=== PATIENT | female | born 1980 | race Caucasian/White ===

== ENCOUNTER 2017-01-19 11:41 | Emergency (ER) | payer OTHER, MEDICAID ==
[~2017-01-19] VITALS: Ht 165.1 cm; Wt 72.6 kg
[~2017-01-19 11:41] MED LIST: NORCOTAB PO; OXYC1TAB23 PO
[2017-01-19] MEDS ORDERED: KETOROLAC 30 MG/ML VIAL (J1885) IV ONE (12:00)
[2017-01-19] MEDS ORDERED: NS 1,000 ML IV ONE (12:00)
[2017-01-19] MEDS ORDERED: ONDANSETRON 4MG/2ML VIAL (J2405) IV ONE (12:15)
[2017-01-19 12:34] LABS: BASO % 0.5 % (0.0-1.0); EOS # 0.4 K/mm3 (0.0-0.50); EOS % 4.3 % (0.0-3.0); LARGE UNSTAINED CELL # 0.1 K/mm3 (0.0-0.4); LYMPH # 1.8 K/mm3 (1.5-4.5); MEAN CORPUSCULAR HEMOGLOBIN 30.7 pg (27.0-33.0); MEAN CORPUSCULAR VOLUME 90.4 fl (80.0-96.0); MONO # 0.3 K/mm3 (0.0-0.8); MONO % 3.5 % (0.0-5.0); NEUTROPHILS # 5.7 K/mm3 (1.8-7.7); NEUTROPHILS % 69.6 % (36.0-66.0); PLATELET COUNT, AUTOMATED 261 k/mm3 (150-450); RED CELL DISTRIBUTION WIDTH 12.5 % (11.5-14.5); WHITE BLOOD COUNT 8.2 K/mm3 (4.0-10.0)
--- NOTE | 2017-01-19 13:39 | REP ---
PELVIC ULTRASOUND: Real-time sonographic evaluation of the pelvis performed utilizing transabdominal and endovaginal technique. The bladder measures 3.1 x 2.1 x 6.5 cm. 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 Endometrium in the right side measures 5 mm in AP thickness and on the right side 9 mm. There is no endometrial fluid collection. Ovaries appear normal in size and echotexture, right ovary measuring 2.3 x 1.7 x 2.3 cm and left ovary 2.7 x 1.2 x 2.4 cm. There is no evidence of adnexal mass. There is no evidence of ovarian torsion with blood flow seen in each ovary with duplex Doppler evaluation. There is mild free fluid. IMPRESSION: Mild free fluid. No evidence of adnexal mass. No evidence of torsion. Signed by Palomo Perez MD 01/19/2017 04:57 P
[2017-01-19] MEDS ORDERED: ZOFR4TAB3 PO (14:29)
[2017-01-19] MEDS ORDERED: NAPR500T PO (14:30)
[2017-01-19 14:37] VITALS: BP 122/76
== END 2017-01-19 14:38 | disposition home or self-care (01) ==
LOC: M ED 13:33
DX: N92.0 Excessive and frequent menstruation with regular cycle (principal); R51 Headache; Z88.5 Allergy status to narcotic agent
CPT/HCPCS: 51701; 76830; 76856; 81001; 81025; 84443; 85025; 93976; 96374; 96375; 99284; J1885; J2405

== ENCOUNTER → 2017-02-15 | Outpatient (CLI) | payer OTHER, MEDICAID ==
[~2017-02-15] MED LIST changes: +NAPR500T PO; +ZOFR4TAB3 PO
--- NOTE | 2017-02-16 05:42 | REP ---
Clinical: Pain. Technique: AP, lateral, bilateral oblique views left first digit. Findings: The osseous structures and joint spaces are intact and normal. There is no evidence for acute fracture or dislocation. Surrounding soft tissues are unremarkable. No subcutaneous emphysema or radiodense foreign body. Impression: Normal examination. No acute fracture or dislocation. Signed by Matthew Hinojosa MD 02/16/2017 05:34 A
== END ==
LOC: M CLY 14:42
PROVIDERS: ATTEND Family Medicine
DX: M79.645 Pain in left finger(s) (principal)

== ENCOUNTER → 2017-12-13 | Outpatient (REF) | payer OTHER, MEDICAID ==
[2017-12-13 17:21] LABS: ALBUMIN 3.9 GM/DL (3.2-5.2); ALBUMIN/GLOBULIN RATIO 1.18 (1.00-1.93); ALKALINE PHOSPHATASE 44 U/L (45-117); ALT/SGPT 13 U/L (12-78); AMYLASE 69 U/L (25-115); ANION GAP 7 MEQ/L (8-16); AST/SGOT 17 U/L (7-37); BILIRUBIN,TOTAL 0.4 MG/DL (0.2-1.0); BLOOD UREA NITROGEN 12 MG/DL (7-18); CALCIUM LEVEL 8.8 MG/DL (8.5-10.1); CARBON DIOXIDE LEVEL 27 MEQ/L (21-32); CHLORIDE LEVEL 109 MEQ/L (98-107); CREATININE FOR GFR 0.82 MG/DL (0.55-1.30); GLOMERULAR FILTRATION RATE > 60.0 (>60); GLUCOSE, FASTING 69 MG/DL (70-100); LIPASE 163 U/L (73-393); MAGNESIUM LEVEL 2.2 MG/DL (1.8-2.4); POTASSIUM SERUM 3.6 MEQ/L (3.5-5.1); SODIUM LEVEL 143 MEQ/L (136-145); TOTAL PROTEIN 7.2 GM/DL (6.4-8.2)
[2017-12-13 17:25] LABS: BASO # 0.1 10^3/uL (0.0-0.2); BASO % 1.5 % (0.0-1.0); EOS # 0.3 10^3/uL (0.0-0.50); HEMATOCRIT 38.6 % (36.0-47.0); HEMOGLOBIN 12.7 g/dl (12.0-15.5); IMMATURE GRANULOCYTE % 0.2 % (0-3.0); LYMPH # 2.3 10^3/uL (1.5-4.5); LYMPH % 42.4 % (24.0-44.0); MEAN CORPUSCULAR HEMOGLOBIN 29.5 pg (27.0-33.0); MEAN CORPUSCULAR HGB CONC 32.9 g/dl (32.0-36.5); MEAN CORPUSCULAR VOLUME 89.8 fl (80.0-96.0); MONO # 0.4 10^3/uL (0.0-0.8); MONO % 7.3 % (0.0-5.0); NEUTROPHILS # 2.3 10^3/uL (1.8-7.7); NEUTROPHILS % 43.6 % (36.0-66.0); PLATELET COUNT, AUTOMATED 318 10^3/uL (150-450); RED CELL DISTRIBUTION WIDTH 13.2 % (11.5-14.5); WHITE BLOOD COUNT 5.4 10^3/uL (4.0-10.0)
== END ==
LOC: M SFHCCLAY 10:01
DX: R10.30 Lower abdominal pain, unspecified (principal)

== ENCOUNTER → 2018-03-19 | Outpatient (REF) | payer OTHER, MEDICAID ==
[2018-03-19 12:52] LABS: AMORPHOUS SEDIMENT SMALL (NEGATIVE); APPEARANCE, URINE HAZY (CLEAR); BACTERIA, URINE AUTO 1+ (NEGATIVE); BILIRUBIN, URINE AUTO NEGATIVE (NEGATIVE); BLOOD, URINE BLOOD NEGATIVE (NEGATIVE); COLOR, URINE YELLOW (YELLOW); GLUCOSE, URINE (UA) AUTO NEGATIVE (NEGATIVE); KETONE, URINE AUTO NEGATIVE (NEGATIVE); LEUKOCYTE ESTERASE, URINE AUTO NEGATIVE (NEGATIVE); MUCUS, URINE SMALL (NEGATIVE); NITRITE, URINE AUTO NEGATIVE (NEGATIVE); PROTEIN, URINE AUTO NEGATIVE (NEGATIVE); RBC, URINE AUTO 1 /HPF (0-3); SPECIFIC GRAVITY URINE AUTO 1.008 (1.002-1.035); SQUAMOUS EPITHELIAL CELL UR AU 3 /HPF (0-6); UROBILINOGEN, URINE AUTO 0.2 mg/dL (0.0-2.0); WBC, URINE AUTO 1 /HPF (0-3)
[2018-03-19 14:54] LABS: CONTROL LINE UCG INT CTR LINE PRESENT; URINE PREG TEST NEGATIVE (NEGATIVE)
== END ==
LOC: M LAB REF 12:36
DX: N39.0 Urinary tract infection, site not specified (principal)
CPT/HCPCS: 84703

== ENCOUNTER → 2018-04-28 | Outpatient (CLI) | payer OTHER, MEDICAID | LOC: M RAD 17:58 | DX: M25.562 Pain in left knee (principal); Z98.890 Other specified postprocedural states; M22.40 Chondromalacia patellae, unspecified knee | CPT/HCPCS: 73721 ==

== ENCOUNTER → 2018-11-24 | Outpatient (REF) | payer OTHER, MEDICAID ==
[~2018-11-24] MED LIST changes: +NAPR-50 PO; -NAPR500T PO; +ZOFR4TAB14 PO; -ZOFR4TAB3 PO
[2018-11-24 16:44] LABS: BASO # 0.1 10^3/uL (0.0-0.2); EOS # 0.3 10^3/uL (0.0-0.50); EOS % 5.9 % (0.0-3.0); HEMOGLOBIN 13.2 g/dl (12.0-15.5); LYMPH # 2.1 10^3/uL (1.5-4.5); LYMPH % 36.1 % (24.0-44.0); MEAN CORPUSCULAR HEMOGLOBIN 30.1 pg (27.0-33.0); MEAN CORPUSCULAR VOLUME 91.1 fl (80.0-96.0); MONO # 0.4 10^3/uL (0.0-0.8); MONO % 7.5 % (0.0-5.0); NEUTROPHILS # 2.8 10^3/uL (1.8-7.7); NEUTROPHILS % 49.2 % (36.0-66.0); PLATELET COUNT, AUTOMATED 264 10^3/uL (150-450); RED BLOOD COUNT 4.39 10^6/uL (4.00-5.40); WHITE BLOOD COUNT 5.8 10^3/uL (4.0-10.0)
[2018-11-24 16:54] LABS: ALBUMIN 4.1 GM/DL (3.2-5.2); ALT/SGPT 17 U/L (12-78); BILIRUBIN,TOTAL 0.4 MG/DL (0.2-1.0); BLOOD UREA NITROGEN 12 MG/DL (7-18); CALCIUM LEVEL 8.8 MG/DL (8.5-10.1); CARBON DIOXIDE LEVEL 24 MEQ/L (21-32); CHLORIDE LEVEL 110 MEQ/L (98-107); CREATININE FOR GFR 0.81 MG/DL (0.55-1.30); GLOMERULAR FILTRATION RATE > 60.0 (>60); GLUCOSE, FASTING 77 MG/DL (70-100); IRON (FE) 73 UG/DL (50-170); POTASSIUM SERUM 4.3 MEQ/L (3.5-5.1); SODIUM LEVEL 141 MEQ/L (136-145); TOTAL PROTEIN 7.4 GM/DL (6.4-8.2)
== END ==
LOC: M SFHCCLAY 09:34
PROVIDERS: ATTEND Family Medicine
DX: G43.109 Migraine with aura, not intractable, without status migrainosus (principal); Z13.0 Encounter for screening for diseases of the blood and blood-forming organs and certain disorders involving the immune mechanism

== ENCOUNTER 2018-12-30 14:47 | Emergency (ER) | payer MEDICAID, OTHER ==
[~2018-12-30] VITALS: Ht 167.6 cm; Wt 78.6 kg
[~2018-12-30 14:47] MED LIST changes: +HYDR-3715 PO; -NAPR-50 PO; +NAPR-837 PO; -NORCOTAB PO
[2018-12-30] MEDS ORDERED: PANTOPRAZOLE 40MG INJ (PROTONIX) (C9113) IV ONE (15:15)
[2018-12-30] MEDS ORDERED: ONDANSETRON 4MG/2ML VIAL (J2405) IV ONE (15:15)
[2018-12-30 15:45] LABS: BASO % 0.2 % (0.0-1.0); EOS # 0.1 10^3/uL (0.0-0.50); EOS % 0.9 % (0.0-3.0); HEMOGLOBIN 13.7 g/dl (12.0-15.5); LYMPH # 0.4 10^3/uL (1.5-4.5); LYMPH % 3.7 % (24.0-44.0); MEAN CORPUSCULAR HEMOGLOBIN 30.2 pg (27.0-33.0); MEAN CORPUSCULAR HGB CONC 33.4 g/dl (32.0-36.5); MEAN CORPUSCULAR VOLUME 90.3 fl (80.0-96.0); MONO # 0.4 10^3/uL (0.0-0.8); NEUTROPHILS # 10.6 10^3/uL (1.8-7.7); NEUTROPHILS % 91.9 % (36.0-66.0); PLATELET COUNT, AUTOMATED 220 10^3/uL (150-450); RED BLOOD COUNT 4.54 10^6/uL (4.00-5.40); WHITE BLOOD COUNT 11.5 10^3/uL (4.0-10.0)
[2018-12-30 16:05] LABS: HCG, SERUM QUALITATIVE NEGATIVE (NEGATIVE)
[2018-12-30 16:07] LABS: ALBUMIN 3.8 GM/DL (3.2-5.2); ALT/SGPT 14 U/L (12-78); BILIRUBIN,DIRECT 0.2 MG/DL (0.0-0.2); BILIRUBIN,TOTAL 0.6 MG/DL (0.2-1.0); BLOOD UREA NITROGEN 15 MG/DL (7-18); CALCIUM LEVEL 8.4 MG/DL (8.5-10.1); CARBON DIOXIDE LEVEL 24 MEQ/L (21-32); CHLORIDE LEVEL 106 MEQ/L (98-107); CREATININE FOR GFR 0.76 MG/DL (0.55-1.30); GLOMERULAR FILTRATION RATE > 60.0 (>60); GLUCOSE, FASTING 95 MG/DL (70-100); LIPASE 164 U/L (73-393); POTASSIUM SERUM 4.1 MEQ/L (3.5-5.1); SODIUM LEVEL 138 MEQ/L (136-145)
[2018-12-30] MEDS ORDERED: NS 1,000 ML IV ONE (16:30)
[2018-12-30] MEDS ORDERED: ZOFR4TAB16 PO (17:03)
[2018-12-30 17:10] VITALS: BP 119/82
== END 2018-12-30 17:10 | disposition home or self-care (01) ==
LOC: M ED 14:47
DX: K52.9 Noninfective gastroenteritis and colitis, unspecified (principal); Z90.49 Acquired absence of other specified parts of digestive tract; Z88.5 Allergy status to narcotic agent
CPT/HCPCS: 80048; 80076; 81001; 83690; 84703; 85025; 96361; 96374; 96375; 99284; C9113; J2405

== ENCOUNTER → 2019-03-29 | Outpatient (CLI) | payer MEDICAID, OTHER ==
[~2019-03-29] MED LIST changes: +ZOFR4TAB16 PO
--- NOTE | 2019-03-30 11:10 | REP ---
MRI LEFT KNEE: TECHNIQUE: Axial proton density fat saturation, sagittal proton density T2 STIR, water excitation, coronal proton density, proton density fat saturation. COMPARISON: 04/28/2018. Once again there is evidence of prior medial partial meniscectomy of both the medial and lateral meniscus. Both menisci are truncated, more so the medial meniscus. Old residual increased signal along the under surface of the posterior horn of the lateral meniscus is stable. No new meniscal tear is seen. There is again evidence of prior ACL reconstruction. Small focus of increased signal on T2-weighted images is seen in the ACL graft in the tibial tunnel, unchanged, consistent with some stable minor mucoid degeneration. Posterior cruciate ligament is intact. The collateral ligaments are intact. The extensor mechanism is intact. There is mild global chondromalacia unchanged. No osteochrondral defect is seen. There is no acute marrow edema or other marrow signal change. There is a normal amount of joint fluid. No popliteal cyst is seen. IMPRESSION: Postsurgical changes are stable. No acute internal derangement. There is no change since prior study of 04/28/2018. Electronically Signed by Palomo Perez MD 04/01/2019 07:21 P
== END ==
LOC: M RAD 18:01
PROVIDERS: ATTEND Family Medicine
DX: M25.562 Pain in left knee (principal); R29.898 Other symptoms and signs involving the musculoskeletal system; M23.8X2 Other internal derangements of left knee

== ENCOUNTER 2019-06-20 15:51 | Emergency (ER) | payer MEDICAID, OTHER ==
[~2019-06-20] VITALS: Ht 165.1 cm; Wt 78.6 kg
[2019-06-20] MEDS ORDERED: SUMA25TA3 PO (16:48)
[2019-06-20] MEDS ORDERED: ONDANSETRON 4MG/2ML VIAL (J2405) IV ONE (17:30)
[2019-06-20] MEDS ORDERED: NS 1,000 ML IV ONE (17:30)
[2019-06-20] MEDS ORDERED: KETOROLAC 30 MG/ML VIAL (J1885) IV ONE (17:30)
[2019-06-20] MEDS ORDERED: ONDANSETRON 4 MG ORAL DISINTEGRATING TAB (Q0162 PER 1MG) PO ONE (19:00)
[2019-06-20] MEDS ORDERED: KETOROLAC 60 MG/2 ML VIAL (J1885) IM ONE (19:00)
[2019-06-20 19:15] LABS: BASO # 0.1 10^3/uL (0.0-0.2); BASO % 0.8 % (0.0-1.0); EOS # 0.3 10^3/uL (0.0-0.5); EOS % 2.9 % (0.0-3.0); HEMATOCRIT 41.7 % (36.0-47.0); HEMOGLOBIN 13.8 g/dl (12.0-15.5); LYMPH % 33.9 % (24.0-44.0); MEAN CORPUSCULAR HEMOGLOBIN 30.5 pg (27.0-33.0); MEAN CORPUSCULAR HGB CONC 33.1 g/dl (32.0-36.5); MEAN CORPUSCULAR VOLUME 92.1 fl (80.0-96.0); MONO # 0.5 10^3/uL (0.0-0.8); NEUTROPHILS # 4.9 10^3/uL (1.5-8.5); NEUTROPHILS % 56.2 % (36.0-66.0); PLATELET COUNT, AUTOMATED 226 10^3/uL (150-450); RED BLOOD COUNT 4.53 10^6/uL (4.00-5.40); WHITE BLOOD COUNT 8.7 10^3/uL (4.0-10.0)
[2019-06-20 19:31] LABS: BILIRUBIN,DIRECT 0.1 MG/DL (0.0-0.2); BILIRUBIN,TOTAL 0.4 MG/DL (0.2-1.0); TOTAL PROTEIN 7.6 GM/DL (6.4-8.2)
--- NOTE | 2019-06-20 22:25 | REPVR ---
PROCEDURE INFORMATION: Exam: US Pelvis Complete, Transabdominal Exam date and time: 06/20/2019 9:29 PM Clinical history: 38 years old, female; Pelvic pain; Additional info: Lower abd pain/irreg menses TECHNIQUE: Imaging protocol: Real-time transabdominal pelvic ultrasound with image documentation. Complete exam. 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 Left-sided endometrial thickness measures 7.5 mm and right-sided endometrial thickness measured 11.4 cm. Right adnexa: Right ovary is unremarkable measuring 2.4 x 1.5 x 1.5 cm. Normal vascular flow is seen. Left adnexa: Left ovary is unremarkable measuring 2.4 x 1.0 x 2.4 cm. Normal vascular flow is seen. Free fluid: None. Bladder: Normal. 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 Bilateral ovaries are unremarkable. No acute finding. Electronically signed by: Callie Lawson On 06/20/2019 22:24:45 PM
[2019-06-20] MEDS ORDERED: PERCOCET 5MG/325MG TAB PO ONE (22:45)
[2019-06-21] MEDS ORDERED: ISOVUE-370 76% 100ML VIAL (Q9967) As Ordered ONE (00:44)
--- NOTE | 2019-06-21 01:15 | REPVR ---
PROCEDURE INFORMATION: Exam: CT Abdomen And Pelvis With Contrast Exam date and time: 06/20/2019 10:35 PM Clinical history: 38 years old, female; Abdominal pain; Generalized; Additional info: Abd pain TECHNIQUE: Imaging protocol: Computed tomography of the abdomen and pelvis with intravenous contrast. Radiation optimization: All CT scans at this facility use at least one of these dose optimization techniques: automated exposure control; mA and/or kV adjustment per patient size (includes targeted exams where dose is matched to clinical indication); or iterative reconstruction. Contrast material: ISO; Contrast volume: 100 ml; Contrast route: HAND; COMPARISON: US PEDORTHIST 06/20/2019 8:59 PM FINDINGS: Liver: Liver is enlarged with multiple low attenuation areas measuring up to 15 mm likely representing cysts. Mild fatty infiltration of liver. Gallbladder and bile ducts: Status post cholecystectomy. Pancreas: Normal. No ductal dilation. Spleen: Normal. No splenomegaly. Adrenals: Normal. No mass. Kidneys and ureters: Simple cyst in the interpolar region of the left kidney measuring approximately 26.3 x 19 mm. Right kidney is unremarkable. Stomach and bowel: Moderate fecal loading of the colon. No bowel dilatation or obstruction. Appendix: Status post appendectomy. Intraperitoneal space: Unremarkable. No free air. No significant fluid collection. Vasculature: Unremarkable. No abdominal aortic aneurysm. Lymph nodes: Unremarkable. No enlarged lymph nodes. Bladder: Unremarkable as visualized. Reproductive: Bilateral fallopian tube surgical clips. 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 Bones/joints: Unremarkable. No acute fracture. Soft tissues: Unremarkable. IMPRESSION: Multiple liver cysts with fatty infiltration and mild enlargement of the liver. Simple cyst in the left kidney. Moderate fecal loading of the colon. No bowel dilatation or obstruction. Bilateral fallopian tube surgical clips. 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 Electronically signed by: Callie Lawson On 06/21/2019 01:15:08 AM
[2019-06-21] MEDS ORDERED: MIRA3350 PO (01:29)
[2019-06-21] MEDS ORDERED: MAGN296S16 PO (01:29)
[2019-06-21 01:33] VITALS: BP 112/75
== END 2019-06-21 01:49 | disposition home or self-care (01) ==
LOC: M ED 15:51
DX: K59.00 Constipation, unspecified (principal); K76.89 Other specified diseases of liver; K76.0 Fatty (change of) liver, not elsewhere classified; R16.0 Hepatomegaly, not elsewhere classified; N85.4 Malposition of uterus; G43.909 Migraine, unspecified, not intractable, without status migrainosus; Z79.899 Other long term (current) drug therapy; Z88.5 Allergy status to narcotic agent
CPT/HCPCS: 74177; 76856; 80047; 80076; 81001; 83690; 84702; 85025; 96372; 99283; J1885; Q0162; Q9967

== ENCOUNTER → 2020-11-19 | Outpatient (CLI) | payer OTHER, MEDICAID ==
[~2020-11-19] MED LIST changes: +IBUP-1022 PO; +MAGN296S16 PO; +MIRA3350 PO; +SUMA25TA3 PO
== END ==
LOC: M LABSMTC 09:48
PROVIDERS: ATTEND Anesthesiology
DX: Z20.828 Contact with and (suspected) exposure to other viral communicable diseases (principal); Z11.59 Encounter for screening for other viral diseases

== ENCOUNTER 2020-11-24 06:23 | Day surgery (SDC) | payer OTHER ==
[~2020-11-24] VITALS: Ht 162.6 cm; Wt 74.8 kg
[2020-11-24] MEDS ORDERED: POVIDONE-IODINE 5% OPHTH PREP SOL 30ML As Ordered ONE (06:42)
[2020-11-24] MEDS ORDERED: OFLOXACIN 0.3 % (OCUFLOX) OPTH SOL 5ML OS ONE (07:00)
[2020-11-24] MEDS ORDERED: PROPARACAINE 0.5% OPHTH SOL 15ML OS ONE (07:00)
[2020-11-24] MEDS ORDERED: TROPICAMIDE 1% OPHTH SOLN 2ML OS ONE (07:00)
[2020-11-24] MEDS ORDERED: fentaNYL 100 MCG/2 ML INJECTION (J3010) As Ordered ONE (07:10)
[2020-11-24] MEDS ORDERED: MIDAZOLAM INJ 2MG/2ML VIAL (J2250 PER 1MG) As Ordered ONE (07:10)
[2020-11-24 10:05] VITALS: BP 129/80
--- NOTE | 2020-11-25 11:41 | RO ---
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 PROCEDURE: Superficial keratectomy with елена kirti and peripheral anterior microstromal puncture. SURGEON: Solomon Holland DO. COMPUTER APPLICATIONS DEVELOPER: ANESTHESIA: Local with MAC. DESCRIPTION OF PROCEDURE: Patient was seen and identified in the preoperative area. The consent was reviewed, and the surgical site was marked. Patient received topical anesthetics, and the patient was transferred to the operating room. The eye was prepped and draped in the sterile fashion. Using Tegaderm, the upper and lower eyelids were isolated. The wire lid speculum was placed. A [place] blade was used to remove the corneal epithelium. This was done to approximately 2 mm from the corneal limbus. Елена kirti was then used to g[place] the peripheral cornea. Using a 30 gauge needle, a peripheral anterior microstromal puncture was performed 360 degrees at the 2 mm area from the limbus. The patient tolerated the procedure well. A bandage contact lens was placed. The patient was taken to the PACU in stable condition.
== END 2020-11-24 10:05 | disposition home or self-care (01) ==
LOC: M SDC 06:23
PROVIDERS: ATTEND Ophthalmology
DX: H18.832 Recurrent erosion of cornea, left eye (principal); G43.909 Migraine, unspecified, not intractable, without status migrainosus; Z79.899 Other long term (current) drug therapy; Z88.5 Allergy status to narcotic agent
CPT/HCPCS: 65435; 81025; J2250; J3010

== ENCOUNTER → 2021-11-12 | Outpatient (CLI) | payer OTHER | LOC: M CLY 11:26 | PROVIDERS: ATTEND Physician Assistant | DX: R10.84 Generalized abdominal pain (principal) ==

== ENCOUNTER → 2023-03-11 | Outpatient (REF) | payer OTHER ==
[2023-03-11 17:46] LABS: HEMATOCRIT 37.8 % (36.0-47.0); HEMOGLOBIN 12.4 g/dl (12.0-15.5); MEAN CORPUSCULAR HGB CONC 32.8 g/dl (32.0-36.5); MEAN CORPUSCULAR VOLUME 91.5 fl (80.0-96.0); PLATELET COUNT, AUTOMATED 285 10^3/uL (150-450); RED BLOOD COUNT 4.13 10^6/uL (4.00-5.40); WHITE BLOOD COUNT 6.4 10^3/uL (4.0-10.0)
[2023-03-11 17:51] LABS: ALBUMIN 3.9 G/DL (3.2-5.2); ALKALINE PHOSPHATASE 41 U/L (46-116); ALT/SGPT 27 U/L (7.0-40); AST/SGOT 12 U/L (<34); BILIRUBIN,TOTAL 0.7 MG/DL (0.3-1.2); BLOOD UREA NITROGEN 11 MG/DL (9-23); CALCIUM LEVEL 8.8 MG/DL (8.5-10.1); CARBON DIOXIDE LEVEL 26 MMOL/L (20-31); CHLORIDE LEVEL 107 MMOL/L (98-107); CHOLESTEROL LEVEL 156 MG/DL (<200); CHOLESTEROL RISK RATIO 2.08 (<5); CREATININE FOR GFR 0.72 MG/DL (0.55-1.30); GLOMERULAR FILTRATION RATE > 60.0 (>58); GLUCOSE, FASTING 69 MG/DL (60-100); HDL CHOLESTEROL 74.9 MG/DL (>40); LDL CHOLESTEROL 69.5 MG/DL (<100); NON-HDL-C 81.1 MG/DL; POTASSIUM SERUM 3.9 MMOL/L (3.5-5.1); SODIUM LEVEL 138 MMOL/L (136-145); TOTAL PROTEIN 6.7 G/DL (5.7-8.2); TRIGLYCERIDES LEVEL 58 MG/DL (<150)
== END ==
LOC: M SFHCCLAY 11:25
PROVIDERS: ATTEND Family Medicine
DX: Z00.00 Encounter for general adult medical examination without abnormal findings (principal); Z13.220 Encounter for screening for lipoid disorders; K21.9 Gastro-esophageal reflux disease without esophagitis

== ENCOUNTER → 2023-11-21 | Outpatient (CLI) | payer OTHER | LOC: M WUC 15:52 | PROVIDERS: ATTEND Student in an Organized Health Care Education/Training Program | DX: J20.9 Acute bronchitis, unspecified (principal) ==

== ENCOUNTER 2024-03-04 17:03 | Emergency (ER) | payer OTHER ==
[~2024-03-04] VITALS: Ht 167.6 cm; Wt 75.6 kg
[2024-03-04 18:12] LABS: BASO # 0.1 10^3/uL (0.0-0.2); EOS # 0.5 10^3/uL (0.0-0.5); EOS % 7.3 % (0.0-3.0); HEMATOCRIT 39.2 % (36.0-47.0); HEMOGLOBIN 13.4 g/dl (12.0-15.5); LYMPH # 2.7 10^3/uL (1.5-5.0); LYMPH % 42.7 % (24.0-44.0); MEAN CORPUSCULAR HEMOGLOBIN 30.4 pg (27.0-33.0); MEAN CORPUSCULAR HGB CONC 34.2 g/dl (32.0-36.5); MEAN CORPUSCULAR VOLUME 88.9 fl (80.0-96.0); MONO # 0.5 10^3/uL (0.0-0.8); NEUTROPHILS # 2.6 10^3/uL (1.5-8.5); NEUTROPHILS % 40.8 % (36.0-66.0); PLATELET COUNT, AUTOMATED 275 10^3/uL (150-450); RED BLOOD COUNT 4.41 10^6/uL (4.00-5.40); WHITE BLOOD COUNT 6.3 10^3/uL (4.0-10.0)
[2024-03-04 18:32] LABS: BLOOD UREA NITROGEN 8 MG/DL (9-23); CALCIUM LEVEL 9.3 MG/DL (8.5-10.1); CARBON DIOXIDE LEVEL 24 MMOL/L (20-31); CHLORIDE LEVEL 106 MMOL/L (98-107); CREATININE FOR GFR 0.75 MG/DL (0.55-1.30); GLOMERULAR FILTRATION RATE > 60.0 (>58); GLUCOSE, FASTING 91 MG/DL (60-100); POTASSIUM SERUM 3.5 MMOL/L (3.5-5.1); SODIUM LEVEL 137 MMOL/L (136-145)
[2024-03-04 19:00] VITALS: BP 116/80; TEMP 98.9; O2SAT 99
[2024-03-04] MEDS: ALBUTEROL 90 MCG/ACT 8GM HFA INHALER INH ONE (19:08)
== END 2024-03-04 19:16 | disposition home or self-care (01) ==
LOC: M ED 17:03
DX: U07.1 COVID-19 (principal); I45.81 Long QT syndrome; G43.909 Migraine, unspecified, not intractable, without status migrainosus; K21.9 Gastro-esophageal reflux disease without esophagitis; F10.10 Alcohol abuse, uncomplicated; Z88.5 Allergy status to narcotic agent; Z79.1 Long term (current) use of non-steroidal anti-inflammatories (NSAID); Z79.899 Other long term (current) drug therapy

== ENCOUNTER → 2025-05-14 | Outpatient (CLI) | payer OTHER ==
[~2025-05-14] MED LIST changes: -IBUP-1022 PO; +IBUP600T42 PO
== END ==
LOC: M WUC 13:21
PROVIDERS: ATTEND Physician Assistant
DX: M25.532 Pain in left wrist (principal); M25.562 Pain in left knee

== ENCOUNTER 2025-06-24 15:00 | Emergency (ER) | payer OTHER ==
[~2025-06-24] VITALS: Ht 165.1 cm; Wt 74.1 kg
[2025-06-24] MEDS: MORPHINE 4 MG/ML 1 ML VIAL IV PRN (16:19)
[2025-06-24] MEDS: NS (Normal Saline) 0.9% 1,000 ML IV SCH (16:19)
[2025-06-24 16:20] LABS: BASO # 0.1 10^3/uL (0.0-0.2); BASO % 0.8 % (0.0-1.0); EOS # 0.2 10^3/uL (0.0-0.5); EOS % 2.2 % (0.0-3.0); LYMPH # 2.0 10^3/uL (1.5-5.0); LYMPH % 19.6 % (24.0-44.0); MONO # 0.6 10^3/uL (0.0-0.8); MONO % 6.3 % (2.0-8.0); NEUTROPHILS # 7.1 10^3/uL (1.5-8.5); NEUTROPHILS % 70.8 % (36.0-66.0); PLATELET COUNT, AUTOMATED 286 10^3/uL (150-450)
[2025-06-24] MEDS ORDERED: ISOVUE-370 76% 100 ML VIAL As Ordered ONE (16:46)
[2025-06-24 16:48] LABS: CALCIUM LEVEL 8.7 MG/DL (8.5-10.1); CARBON DIOXIDE LEVEL 24 MMOL/L (20-31); CHLORIDE LEVEL 105 MMOL/L (98-107); CREATININE FOR GFR 0.73 MG/DL (0.55-1.30); GLOMERULAR FILTRATION RATE > 90.0 (>58); POTASSIUM SERUM 4.0 MMOL/L (3.5-5.1); SODIUM LEVEL 140 MMOL/L (136-145)
[2025-06-24 16:49] LABS: HCG, SERUM QUALITATIVE NEGATIVE (NEGATIVE)
[2025-06-24 18:32] VITALS: BP 132/77; TEMP 96.6; O2SAT 100
[2025-06-24] MEDS: ONDANSETRON 4MG ORAL DISINTEGRATING TAB PO ONE (18:35)
== END 2025-06-24 19:00 | disposition home or self-care (01) ==
LOC: EDBD 15:00 → M ED 15:00
DX: S13.4XXA Sprain of ligaments of cervical spine, initial encounter (principal); S50.02XA Contusion of left elbow, initial encounter; V49.40XA Driver injured in collision with unspecified motor vehicles in traffic accident, initial encounter; G43.909 Migraine, unspecified, not intractable, without status migrainosus; K76.89 Other specified diseases of liver; N28.1 Cyst of kidney, acquired; K42.9 Umbilical hernia without obstruction or gangrene; M51.34 Other intervertebral disc degeneration, thoracic region; Y92.410 Unspecified street and highway as the place of occurrence of the external cause; Y93.89 Activity, other specified; Y99.9 Unspecified external cause status; Z88.5 Allergy status to narcotic agent; Z79.1 Long term (current) use of non-steroidal anti-inflammatories (NSAID)
CPT/HCPCS: 70450; 71260; 72125; 72128; 72131; 73080; 74177; 80047; 80048; 84703; 85025; 93041; 94760; 96374; 99285; Q9967

== ENCOUNTER → 2025-08-02 | Outpatient (CLI) | payer OTHER | LOC: M PLARAD 16:47 | PROVIDERS: ATTEND Family Medicine | DX: S06.0XAD Concussion with loss of consciousness status unknown, subsequent encounter (principal); R51.9 Headache, unspecified ==

== ENCOUNTER → 2025-08-02 | Outpatient (CLI) | payer OTHER | LOC: M PLARAD 15:23 | PROVIDERS: ATTEND Family Medicine | DX: S06.0XAD Concussion with loss of consciousness status unknown, subsequent encounter (principal); R51.9 Headache, unspecified; M54.2 Cervicalgia; S16.1XXD Strain of muscle, fascia and tendon at neck level, subsequent encounter ==